=== PATIENT | female | born 1950 | race American Indian/Alaskan Native ===

== ENCOUNTER 2016-07-28 10:04 | Day surgery (SDC) | payer MEDICARE ==
[~2016-07-28 10:04] MED LIST: DIPRIVAN 10 MG/ML IV ONE; SUBLIMAZE ONE; XYLOCAINE MPF 2% ONE
[2016-07-28] MEDS ORDERED: NACL BACTERIOSTATIC INFILTRATI ONE (10:37)
--- NOTE | 2016-07-28 10:46 | Anesthesia Consultation ---
Anesthesia Consult and Med Hx Date of service: 07/28/16 - Airway Anesthetic Teeth Evaluation: Poor (lots of missing teeth) ROM Head & Neck: Adequate Mental/Hyoid Distance: Adequate Mallampati Class: Class II Intubation Access Assessment: Probably Good - Pulmonary Exam CTA: Yes - Cardiac Exam Cardiac Exam: RRR - Pre-Operative Health Status ASA Pre-Surgery Classification: ASA3 Proposed Anesthetic Plan: General - Pulmonary Hx Smoking: Yes (STOPPED 1999-1/2PPD X 33YRS) Hx Respiratory Symptoms: Yes (recent cough, residual) Hx Sleep Apnea: No (ELIESER PRE SCREEN LOW RISK.) - Cardiovascular System Hx Hypertension: Yes (X 20 YRS) - Central Nervous System Hx Back Pain: Yes (BACK PAIN TO HETAL HANDS AND RIGHT LEG) - Endocrine Hx Renal Disease: No (Renal stones) - Hematic Hx Anemia: Yes (WITH PREG ONLY) - Other Systems Hx Cancer: No
--- NOTE | 2016-07-28 10:47 | Anesthesia Day of Surgery ---
Anesthesia Day of Surgery - Day of Surgery Patient Examined: Yes Patient H&P Reviewed: Yes Patient is NPO: Yes Beta Blockers: Yes
[2016-07-28] MEDS ORDERED: ANCEF/STERILE WATER 2 GM/20 ML 2 GM/20 ML SYRINGE IV NR (11:00)
[2016-07-28] MEDS ORDERED: VERSED IV NR (11:00)
[2016-07-28] MEDS ORDERED: PEPCID PO NR (11:00)
[2016-07-28 11:12] LABS: Hematocrit 40.3 % (30.3-42.9); Hemoglobin 13.3 gm/dl (10.1-14.3)
[2016-07-28] MEDS ORDERED: WATER FOR IRRIG STERILE IR ONE (11:37)
[2016-07-28] MEDS ORDERED: OMNIPAQUE 300 MG/50 ML (CATH LAB) IV ONE (11:37)
[2016-07-28] MEDS ORDERED: NACL 0.9% 1000 ML 1,000 ML IV SCH (12:00)
[2016-07-28] MEDS ORDERED: DECADRON ONE (12:11)
[2016-07-28] MEDS ORDERED: ZOFRAN ONE (12:11)
--- NOTE | 2016-07-28 12:20 | Post Operative Note ---
Pre-op diagnosis: hematuria cysts Post-op diagnosis: same Findings: as above Procedure: cysto rpgs Anesthesia: GETA Surgeon: ASHLEIGH WILLS Estimated blood loss: none Pathology: none Condition: stable Disposition: PACU
--- NOTE | 2016-07-28 12:22 | Discharge Summary ---
Short Stay Discharge Plan Activity: no restrictions Weight Bearing Status: Full Weight Bearing Diet: regular, low salt Special Instructions: other (inc fliuids ) Follow up with: ZACHERY OLIVERA MD [Primary Care Provider] - 7 Days ASHLEIGH WILLS MD [Staff Physician] - 6 Weeks
--- NOTE | 2016-07-28 12:56 | Operative Report ---
PREOPERATIVE DIAGNOSIS: Hematuria, renal cyst. POSTOPERATIVE DIAGNOSES: Hematuria, renal cyst. PROCEDURE: Cystoscopy, retrograde. SURGEON: Dr. Dixie Jimenez. ANESTHESIA: General. FINDINGS: This is a woman with a renal cyst, renal masses, hematuria. She now presents for cystoscopy. DESCRIPTION OF PROCEDURE: The patient brought to the operating room and placed on the operating table. Following induction of anesthesia, placed in lithotomy position, prepped and draped in usual sterile fashion. Cystourethroscopy showed normal epithelium. There was clear efflux from both orifices. Retrograde showed delicate orifices and collecting system with evidence of external compression from renal cyst. The patient tolerated the procedure well. There was a little bit of an extra renal pelvis, left side which drained on fluoroscopy. Patient tolerated the procedure well. No biopsies were required was brought to recovery room in stable condition. JOB# [id number] MAMIE/VLAD
[2016-07-28 14:38] VITALS: BP 110/61
--- NOTE | 2016-07-30 10:18 | Fluoroscopy Report ---
RETROGRADE PYELOGRAM: History: Hematuria. There is adequate filling of the ureters and intrarenal collecting systems with no filling defects or anatomic abnormalities identified.
== END 2016-07-28 14:25 | disposition home or self-care (01) ==
LOC: OR 10:04
PROVIDERS: ATTEND Urology
DX: N28.1 Cyst of kidney, acquired (principal); R31.29 Other microscopic hematuria; I10 Essential (primary) hypertension; K21.9 Gastro-esophageal reflux disease without esophagitis; Z87.891 Personal history of nicotine dependence
CPT/HCPCS: 36415; 52005; 74420; 84132; 85014; 85018; A4217; C1758; J0690; J1100; J2250; J2405; J2704; J3010; J7030; Q9967